=== PATIENT | female | born 1980 | race Caucasian/White ===

== ENCOUNTER 2018-10-15 05:05 | Emergency (ER) | payer SELFPAY ==
[~2018-10-15] VITALS: Ht 157.5 cm; Wt 81.2 kg
[~2018-10-15 05:05] MED LIST: ALEVE; BACTRIM DS 8001 TAB PO; CHANTIX0.5 MG PO; DOXYCYCLINE 10100 MG PO; DROSPIRENONE; FLEXERIL10 MG PO; MOTRIN 800800 MG/TAB PO; NO HOME MEDICATIONS; NORCO 325 MG-51 TAB PO; NORCO PO; PREDNISONE20 MG PO; PROVENTIL0.09 MG/A1 IH; TYLENOL #3 301 UDTAB PO; VICODIN 5/5001 UDTAB PO
[2018-10-15] MEDS ORDERED: PROTONIX 40MG T40 MG PO (05:21)
[2018-10-15] MEDS ORDERED: LOPRESSOR 550 MG/TAB PO (05:21)
[2018-10-15] MEDS ORDERED: MOBIC15 MG PO (05:21)
[2018-10-15] MEDS ORDERED: ASPIRIN E.C. 8181 MG PO (05:34)
[2018-10-15] MEDS ORDERED: WELLBUTRIN XL300 M1 PO (05:34)
[2018-10-15 07:32] VITALS: BP 122/80; PULSE 70
== END 2018-10-15 07:33 | disposition home or self-care (01) ==
LOC: COL.ER 05:05
DX: M54.5 Low back pain (principal); F17.210 Nicotine dependence, cigarettes, uncomplicated; Z90.710 Acquired absence of both cervix and uterus; Z98.890 Other specified postprocedural states; Z79.82 Long term (current) use of aspirin
CPT/HCPCS: J1170; J1885